=== PATIENT | male | born 1935 | race Caucasian/White ===

== ENCOUNTER → 2016-11-14 | Outpatient (CLI) | payer OTHER ==
[~2016-11-14] VITALS: Ht 175.3 cm; Wt 86.1 kg
[~2016-11-14] MED LIST: ADVIL200 M1 PO; ALEVE220 MG PO; ALLERGY RELIEF10 M1 PO; ALLOPURINOL 30300 M2 PO; ASPIR 8181 M1 PO; COQ-10100 MG PO; DETROL2 M1 PO; FISH OIL 1,001000 M2 PO; LIPITOR 20 MG T20 M1 PO; MAGNESIUM100 MG PO; MELOXICAM7.5 MG PO; MYRBETRIQ50 MG PO; NIACIN 500 MG500 M1 PO; TRAMADOL 50 MG50 MG PO; VIAGRA25 MG PO; VITAMIN B12-FO1 EAC1 PO; VITAMIN D3400 UNI1 PO; VITAMINC500 PO
--- NOTE | ~2016-11-14 | HPC ---
[facility] [address] [place] [address] PAIN MANAGEMENT CONSULTATION Name: THADDEUS GARCIA Room #: REG CLCampos Arlette#: [id number] Admission: 11/14/16 Attend Phys: Demetrio Pham DO Discharge: Date of : 37 Report #: [id number] THIS REPORT FOR: //name// CC: Tevin Pham The patient is an 81-year-old gentleman, prior seen by Dr. Fransico Pham late last year. Last visit was 03/25/2016. He had prior had bilateral L4-L5 and L5-S1 facet joint injections with near 100% relief of symptoms, moved forward with radiofrequency neurolysis back in March, unfortunately, this really afforded nominal efficacy. Returns to pain clinic today with ongoing axial back pain. Was seen for moderately prolonged visit from 1405 to 1430, actually taken to the procedure room at 1506 . The patient notes ongoing axial back pain exacerbated with standing, yard work and bending. Also, notes some disk equilibrium and trouble with balance. Denies specific lumbar radicular pattern. Denies any specific trauma initially starting this issue, but low back pain has been on since 2014. Tried physical therapy with nominal efficacy. Does note swimming helps a little. Rates pain anywhere from a 0-6 on a 0-10 visual analog scale. REVIEW OF SYSTEMS: Complete review of systems was gone over with the patient. An 81-year-old gentleman, BMI is 28 kilograms per meter squared. History of some urinary incontinence, does take Detrol. Dyslipidemia for which he takes atorvastatin. History of COPD, prostate cancer treated with TURP in 2014. Medications were reconciled. PHYSICAL EXAMINATION: VITAL SIGNS: Shows 81-year-old gentleman, BMI is 28 kilograms per meter squared. Blood pressure 129/80, pulse 86, respirations 14. NEUROLOGIC: Cranial nerves 2-12 are grossly intact. HEENT: Pupils equal, reactive to light and accommodation. Extraocular muscles are intact. Has trace nystagmus, lateral gaze deviation. NECK: Thyroid unremarkable. MUSCULOSKELETAL: Upper extremity strength is generally preserved. HEART: Regular and rhythmical. LUNGS: Clear. EXTREMITIES: Rises from chair using armrest, does have minimally ataxic gait. Very tender in the low back area in the L4-L5. Really negative over the SI area. Lower extremity strength is generally preserved. Regla test is negative, lumbar rotation and sidebending does exacerbate axial back pain. DIAGNOSTIC STUDIES: Include MRI of the lumbar spine from 10/31/2015. Does show mild degenerative changes at all levels with fairly prominent left posterior lateral osteophyte at L5-S1 causing left L1 neural foraminal narrowing though this does not correlate with left L5 radicular pain pattern. Does have facet [facility] [address] [place] [address] PAIN MANAGEMENT CONSULTATION Name: THADDEUS GARCIA Awilda Room #: REG CLI Arlette#: [id number] Admission: 11/14/16 Attend Phys: Demetrio Pham DO Discharge: Date of : 37 Report #: [id number] arthropathy, greater at the inferior aspect of the lumbar facets. 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 RECOMMENDATION: 1. We will repeat bilateral L4-L5 and L5-S1 facet joint injections under fluoroscopy today, follow up in 2 weeks for reevaluation. We will refer to physical therapy for core strengthening and balance exercises. We stressed with the patient that he needs to do these exercises on daily basis to improve his subjective balance and gait stability. 2. If does not afford adequate relief, we will consider a spinal cord stimulator as a possible therapeutic option. We did discuss this and in broad strokes today. ASSESSMENT: Lumbar spondylosis by clinical exam and history. PROCEDURE: Bilateral L4-L5 facet joint injection under fluoroscopy. PROCEDURE NOTE: After written informed consent was obtained, the patient was taken to fluoroscopy suite, placed in prone position. After sterile prep and drape, skin wheal was raised. A 22-gauge stylet needle was placed to contact the inferior aspect of the right L4-L5 and right L5-S1 facet joint. Negative aspiration was accomplished. A 0.5 mL of Omnipaque was injected, which highlighted the joint, each joint was then injected with 20 mg triamcinolone plus 1 mL of 0.5% preservative-free bupivacaine. [place] removed. Attention was directed at the contralateral i.e., left L4-L5 and L5-S1 facet joints to treat in an identical fashion. After all four needles removed, the area was cleansed, Band-Aids applied. The patient was monitored for an appropriate period of time, discharged in good and stable condition. Please do note the patient's family was absent on discharge. We will follow up for reevaluation. If symptoms remain attenuated for a number of weeks, 6-8 weeks, we can consider repeating the injection as needed. If he gets only transient relief having filled RFL in the past, we will further pursue conversation about spinal cord stimulator. We will have the patient follow up with Dr. Fransico Pham for further therapy. By: [id number] Demetrio Pham, DO /nt
[2016-11-14 13:51] VITALS: BP 129/80
== END | disposition home or self-care (01) ==
LOC: PAIN 06:54
DX: M47.816 Spondylosis without myelopathy or radiculopathy, lumbar region (principal); R32 Unspecified urinary incontinence; E78.5 Hyperlipidemia, unspecified; J44.9 Chronic obstructive pulmonary disease, unspecified; Z85.46 Personal history of malignant neoplasm of prostate; Z87.891 Personal history of nicotine dependence